=== PATIENT | male | born 1980 | race Caucasian/White ===

== ENCOUNTER 2022-12-16 19:11 | Emergency (ER) | payer MEDICARE, MEDICAID ==
[~2022-12-16] VITALS: Ht 177.8 cm; Wt 91.0 kg
[2022-12-16] MEDS ORDERED: LORAZEPAM 2MG/ML CPJ IV ONE (21:30)
[2022-12-16 21:45] LABS: BASOPHILS % 0.2 % (0.0-2.0); EOSINOPHILS % 2.3 % (0.0-5.0); HEMATOCRIT. 40.1 % (42.0-52.0); HEMOGLOBIN. 13.7 g/dL (14.0-18.0); LYMPHOCYTES % 30.3 % (20.0-50.0); MEAN CORPUSCULAR HEMOGLOBIN 30.9 pg (28.0-32.0); MEAN CORPUSCULAR VOLUME 90.5 fL (80.0-94.0); MONOCYTES % 7.2 % (2.0-8.0); RED BLOOD CELL COUNT 4.43 mill/uL (4.7-6.1); RED CELL DISTRIBUTION WIDTH 13.3 % (11.6-14.6)
[2022-12-16 21:49] LABS: CHLORIDE 108 mEq/L (98-107)
[2022-12-16 21:54] LABS: PROTHROMBIN TIME 10.3 sec (9.6-11.0)
[2022-12-16 22:32] LABS: PLATELET 257 x1000/uL (130-400)
[2022-12-16 22:33] LABS: MEAN PLATELET VOLUME 7.7 fl (7.4-10.4)
[2022-12-17] MEDS ORDERED: POTASSIUM CHLORIDE 20MEQ TABLET SR PO ONE (00:45)
[2022-12-17] MEDS ORDERED: KETOROLAC 15MG/ML VIAL IV ONE (04:30)
[2022-12-17 13:15] VITALS: BP 115/82
== END 2022-12-17 13:16 ==
LOC: ER 19:11
DX: R07.89 Other chest pain (principal); F41.9 Anxiety disorder, unspecified; I10 Essential (primary) hypertension; F17.200 Nicotine dependence, unspecified, uncomplicated
CPT/HCPCS: 36415; 71045; 80053; 84484; 85025; 85610; 96374; 96375; 99285; J1885; J2060

== ENCOUNTER 2023-01-10 21:23 | Emergency (ER) | payer MEDICARE, MEDICAID ==
[~2023-01-10] VITALS: Ht 177.8 cm; Wt 91.0 kg
[2023-01-10 21:25] VITALS: O2SAT 98
[2023-01-10] MEDS ORDERED: HYDROCODONE/ACETAMINOPHEN 5/325MG TABLET PO STA (21:37)
[2023-01-10] MEDS ORDERED: ASPIRIN 81MG TABLET PO ONE (21:45)
[2023-01-10] MEDS ORDERED: NITROGLYCERIN 0.4MG TABLET SL SL PRN (21:45)
[2023-01-10 22:09] LABS: BASOPHILS % 0.3 % (0.0-2.0); EOSINOPHILS % 2.3 % (0.0-5.0); HEMATOCRIT. 39.7 % (42.0-52.0); HEMOGLOBIN. 13.5 g/dL (14.0-18.0); LYMPHOCYTES % 38.9 % (20.0-50.0); MEAN CORPUSCULAR HEMOGLOBIN 30.7 pg (28.0-32.0); MEAN CORPUSCULAR VOLUME 90.5 fL (80.0-94.0); MEAN PLATELET VOLUME 7.6 fl (7.4-10.4); MONOCYTES % 8.6 % (2.0-8.0); NEUTROPHILS % 49.9 % (40.0-76.0); PLATELET 261 x1000/uL (130-400); RED BLOOD CELL COUNT 4.39 mill/uL (4.7-6.1)
[2023-01-10 22:17] LABS: CHLORIDE 111 mEq/L (98-107)
[2023-01-11] MEDS ORDERED: KETOROLAC 60MG/2ML VIAL IM ONE (00:15)
[2023-01-11] MEDS ORDERED: OXYCODONE HCL 10MG TABLET SR 12HR PO ONE (00:45)
[2023-01-11 08:15] VITALS: BP 132/87; PULSE 80; RESP 14; TEMP 97.9
== END 2023-01-11 08:20 ==
LOC: ER 21:23
DX: R07.89 Other chest pain (principal); F17.200 Nicotine dependence, unspecified, uncomplicated; E11.9 Type 2 diabetes mellitus without complications; I10 Essential (primary) hypertension; J44.1 Chronic obstructive pulmonary disease with (acute) exacerbation; Z88.2 Allergy status to sulfonamides
CPT/HCPCS: 36415; 71045; 80053; 83880; 84484; 85025; 93005; 99285